=== PATIENT | female | born 1985 | race Two or more races ===

== ENCOUNTER 2017-11-01 18:12 | Emergency (ER) | payer MEDICAID ==
[~2017-11-01] VITALS: Ht 162.6 cm; Wt 49.9 kg
[~2017-11-01 18:12] MED LIST: FLONASE1 SPRAYS NASAL; IBUPROFEN800 MG ORAL
[2017-11-01 18:28] VITALS: BP 107/74
--- NOTE | 2017-11-01 18:53 | Emergency Room Report ---
History of Present Illness General Chief Complaint: Abdominal Pain Source: Patient Present Illness HPI 31-year-old female patient presents the ER brought in by grandmother for abdominal pain 1 hour. Patient has a history of schizophrenia and bipolar disorder per grandmother. Reports pain is been epigastric nonradiating. Denies fever, chest pain, shortness of breath, vomiting, diarrhea. Reports last bowel movement was 2 days ago. Denies dysuria, hematuria, vaginal discharge. Grandmother reports that patient may be , states "she comes and goes as she's pleases". Denies other acute symptoms. reports ate breakfast without difficulty.denies symptoms onset after eating. Allergies: Coded Allergies: No Known Allergies (Unverified , 04/10/14) Patient History Past Medical History: see triage record Reviewed Nursing Documentation: PMH: Agreed; PSxH: Agreed Review of Systems All Other Systems: negative except mentioned in HPI Physical Exam Vital Signs Date Time Temp Pulse Resp B/P (MAP) Pulse Ox O2 Delivery O2 Flow Rate FiO2 11/01/17 18:18 97.2 72 18 107/74 98 Room Air 97.2 Sp02 EP Interpretation: reviewed, normal General Appearance: well appearing, no apparent distress, alert, GCS 15, non- toxic Head: normocephalic, atraumatic Eyes: bilateral eye normal inspection, bilateral eye PERRL ENT: hearing grossly normal, normal pharynx, no angioedema, normal voice, uvula midline, moist mucus membranes Neck: full range of motion Respiratory: lungs clear, normal breath sounds, no rhonchi, no respiratory distress, no accessory muscle use, no wheezing, speaking full sentences Cardiovascular #1: regular rate, rhythm, no edema Gastrointestinal: normal bowel sounds, non tender, soft, no mass, non-distended , no guarding, no rebound, other - negative Rovsing, negative obturator, negative Eng Genitourinary: no CVA tenderness Musculoskeletal: back normal, digits/nails normal, gait/station normal, normal range of motion, non-tender Psychiatric: mood/affect normal Skin: no rash Medical Decision Making PA Attestation Dr. White is my supervising Physician whom patient management has been discussed with. Diagnostic Impression: Primary Impression: Constipation ER Course Pt presents to ED c/o generalized abdominal pain. DDX considered but are not limited to cystitis, pyelonephritis, constipation, GERD. Low suspicion for appendicitis, no TTP at McBurney's point, negative Rovsing sign. low suspicion for cholecystitis, negative Eng sign. VITAL SIGNS are WNL, patient is afebrile. Ordered UA, urine , Zofran, pain medication. ER COURSE patient afebrile, vital stable, physical exam benign, no abdominal tenderness to palpation do not believe patient requires imaging or labs at this time. Will order UA to rule out UTI. UA results unremarkable. Urine negative. patient reports feeling better following administration of medication in the ER. no diarrhea, no vomiting, no recent travel, no symptom onset after eating, low suspicion for GERD. symptoms likely related to constipation. will provide Treatment. Drink plenty of fluids. Increase fiber intake in diet. Patient is resting comfortably in bed, nontoxic appearing, in no acute distress. Patient states they feel better and is ready to go home. ER precautions given. DISCHARGE -Rx provided for Colace -Rx provided for Tylenol Will provide with patient care instructions and any necessary prescriptions. Patient understands and agrees to treatment plan. Patient encouraged to drink plenty of fluids. Patient to take medication as instructed. Care plan and follow-up instructions provided. Patient questions asked and answered. Patient instructed to follow-up with telephone cleaner in 3 - 5 days. ER precautions given. Patient instructed to return to ER immediately for any new or worsening of symptoms. Including but not limited to fever, worsening pain , intractable vomiting. - Please note that this Emergency Department Report was dictated using [employer] technology software, occasionally this can lead to erroneous entry secondary to interpretation by the dictation equipment. Labs Test 11/01/17 19:30 Urine Color Yellow Urine Appearance Clear Urine pH 7 (4.5-8.0) Urine Specific Lexa 1.015 (1.005-1.035) Urine Protein Negative (NEGATIVE) Urine Glucose (UA) Negative (NEGATIVE) Urine Ketones Negative (NEGATIVE) Urine Occult Blood Negative (NEGATIVE) Urine Nitrite Negative (NEGATIVE) Urine Bilirubin Negative (NEGATIVE) Urine Urobilinogen Normal MG/DL (0.0-1.0) Urine Leukocyte Esterase 1+ (NEGATIVE) Urine RBC 0-2 /HPF (0 - 2) Urine WBC 2-4 /HPF (0 - 2) Urine Squamous Epithelial Cells Few /LPF (NONE/OCC) Urine Bacteria Few /HPF (NONE) Urine HCG, Qualitative Negative (NEGATIVE) Last Vital Signs Date Time Temp Pulse Resp B/P (MAP) Pulse Ox O2 Delivery O2 Flow Rate FiO2 11/01/17 18:28 97.2 18 107/74 98 Room Air 97.2 11/01/17 18:18 72 Disposition: HOME, SELF-CARE Condition: Stable Scripts Docusate Sodium* (COLACE*) 100 Mg Capsule 100 MG ORAL TWICE A DAY for 7 Days, #14 CAP Prov: Magdiel Low 11/01/17 Acetaminophen* (TYLENOL EXTRA STRENGTH*) 500 Mg Tablet 500 MG ORAL Q8H PRN for Prn Headache/Temp > 101, #30 TAB 0 Refills Prov: Magdiel Low 11/01/17 Patient Instructions: Constipation, Adult, [id number] Additional Instructions: Followup with primary care provider in 3 -5 days. Take medications as directed. Patient questions asked and answered. ER precautions given, patient instructed to return to ER immediately for any new or worsening of symptoms. Drink plenty of fluids. High-fiber diet. Magdiel Low Nov 01, 2017 18:53
[2017-11-01] MEDS ORDERED: Acetaminophen 500mg (ES) tab ORAL ONE (19:00)
[2017-11-01 19:51] LABS: APPEARANCE,URINE CLEAR; BILIRUBIN, URINE NEGATIVE (NEGATIVE); COLOR,URINE YELLOW; GLUCOSE, URINE (UA) NEGATIVE (NEGATIVE); KETONES,URINE NEGATIVE (NEGATIVE); LEUKOCYTE ESTERASE ,URINE 1+ (NEGATIVE); NITRITE,URINE NEGATIVE (NEGATIVE); PH,URINE 7 (4.5-8.0); PROTEIN,URINE NEGATIVE (NEGATIVE); UROBILINOGEN,URINE NORMAL MG/DL (0.0-1.0)
[2017-11-01] MEDS ORDERED: COLACE100 MG ORAL (19:56)
[2017-11-01] MEDS ORDERED: TYLENOL EXTRA500 MG ORAL (19:56)
[2017-11-01 20:00] VITALS: BP 110/76
== END 2017-11-01 20:15 | disposition home or self-care (01) ==
LOC: EMR 20:08
DX: K59.00 Constipation, unspecified (principal); R10.84 Generalized abdominal pain
CPT/HCPCS: 81003; 81025; 99284

== ENCOUNTER 2018-06-27 18:47 | Emergency (ER) | payer MEDICAID ==
[~2018-06-27] VITALS: Ht 152.4 cm; Wt 49.9 kg
[~2018-06-27 18:47] MED LIST changes: +COLACE100 MG ORAL; +TYLENOL EXTRA500 MG ORAL
--- NOTE | 2018-06-27 18:50 | NUR ---
ED Nurse Note: Patient does not answer questions at this time. Patient states she is taking Zyprexa, but does not know her history.
[2018-06-27 18:59] VITALS: BP 136/88
--- NOTE | 2018-06-27 20:50 | NUR ---
ED Nurse Note: Received report from Gianni/ Charge Nurse. Pt is A/O X4. VSS . waiting to be d/c'd.
[2018-06-27] MEDS ORDERED: ZYPREXA5 MG ORAL (21:03)
[2018-06-27 21:08] VITALS: BP 131/83
--- NOTE | 2018-06-27 21:08 | NUR ---
ER DISCHARGE NOTE: Pt's ride arrived, Charity/ Grandmother . Patient is cleared to be discharged per Jose Martin. Pt is A/O x4 on room air with stable vital signs. Pt was given dc and prescription instructions, pt was able to verbalize understanding, pt id band removed . pt is able to ambulate with steady gait, pt took all belongings.
--- NOTE | 2018-06-27 21:45 | Emergency Room Report ---
History of Present Illness General Chief Complaint: Behavioral Complaint Source: Patient, EMS Present Illness HPI 32-year-old female presents ED for evaluation. Patient brought in by EMS. Patient walked up to police station and states "I don't know who I am". Patient has history of schizophrenia. States that she does not know what medications she takes. States she does not have them at this time. Denies SI or HI. Denies hearing voices. Denies alcohol or drug use. No other aggravating relieving factors. Denies any other associated symptoms Allergies: Coded Allergies: No Known Allergies (Unverified , 04/10/14) Patient History Past Medical History: psych hx Past Surgical History: none Pertinent Family History: none Social History: Denies: smoking, alcohol use, drug use Now: No Immunizations: UTD Reviewed Nursing Documentation: PMH: Agreed; PSxH: Agreed Nursing Documentation-PMH Past Medical History: No History, Except For History Of Psychiatric Problem: Yes Review of Systems All Other Systems: negative except mentioned in HPI Physical Exam Vital Signs Date Time Temp Pulse Resp B/P (MAP) Pulse Ox O2 Delivery O2 Flow Rate FiO2 06/27/18 18:42 98.1 70 18 136/88 98 Room Air Sp02 EP Interpretation: reviewed, normal General Appearance: no apparent distress, alert, GCS 15, non-toxic Head: normocephalic, atraumatic Eyes: bilateral eye normal inspection, bilateral eye PERRL ENT: hearing grossly normal, normal pharynx, no angioedema, normal voice Neck: full range of motion, supple/symm/no masses Respiratory: chest non-tender, lungs clear, normal breath sounds, speaking full sentences Cardiovascular #1: regular rate, rhythm, no edema Cardiovascular #2: 2+ carotid (R), 2+ carotid (L), 2+ radial (R), 2+ radial (L) , 2+ dorsalis pedis (R), 2+ dorsalis pedis (L) Gastrointestinal: normal bowel sounds, non tender, soft, non-distended, no guarding, no rebound Rectal: deferred Genitourinary: normal inspection, no CVA tenderness Musculoskeletal: back normal, gait/station normal, normal range of motion, non- tender Neurologic: alert, oriented x3, responsive, motor strength/tone normal, sensory intact, speech normal Psychiatric: judgement/insight normal, memory normal, mood/affect normal, no suicidal/homicidal ideation, no delusions Reflexes: 3+ bicep (R), 3+ bicep (L), 3+ tricep (R), 3+ tricep (L), 3+ knee (R) , 3+ knee (L) Skin: normal color, no rash, warm/dry, well hydrated Lymphatic: no adenopathy Medical Decision Making Diagnostic Impression: Primary Impression: Behavioral disorder ER Course Hospital Course 32 yo F presents to ED c/o not having her psych meds. no SI or HI Differential diagnoses include: withdrawal symtpoms, overdose of psychiatric medications, drug ingestion, sepsis Clinical course Patient placed on stretcher. On ekg monitor. After initial history physical exam reveals female in no acute distress. Answering questions appropriately. No evidence of delusions. No evidence of psychosis. No evidence of SI or HI I reviewed EMR. Patient has been here previously for similar presentations. Lives with grandmother. She does not know what medications the patient takes. EMR notes remote history of patient taking Zyprexa. Patient acknowledges taking Zyprexa Given Zyprexa here. On reassessment patient feels better. Grandmother at bedside. States she is safe to take patient home. We'll provide Zyprexa prescription. Also provide mental health referrals i. I feel this is a highly complex case requiring extensive working including EKG/Rhythm strip, Xray/CT/US, Blood/urine lab work, repeat exams while in ED, and administration of strong opiates/narcotics for pain control, admission to hospital or close patient follow up. Diagnosis - behavioral disorder Stable and discharged to home with Rx Zypexa. Followup with PMD/psychiatrist. Return to ED if symptoms recur or worsen Last Vital Signs Date Time Temp Pulse Resp B/P (MAP) Pulse Ox O2 Delivery O2 Flow Rate FiO2 06/27/18 21:08 98.1 74 18 131/83 98 Room Air Status: improved Disposition: HOME, SELF-CARE Condition: Stable Scripts Olanzapine* (ZYPREXA*) 5 Mg Tablet 5 MG ORAL DAILY, #30 TAB Prov: Seun Philippe MD 06/27/18 Referrals: Manuel CALERO,REFERRING (PCP) [facility] [place] [facility] - Peds ER - [facility] Intake Hotline - Patient Instructions: Schizophrenia Seun Philippe MD Jun 27, 2018 21:45
[2018-06-28] MEDS ORDERED: ZYPREXA20 MG ORAL (08:34)
== END 2018-06-27 21:08 | disposition home or self-care (01) ==
LOC: EDBD 18:47 → EMR 20:00
DX: F91.9 Conduct disorder, unspecified (principal)
CPT/HCPCS: 99283